=== PATIENT | male | born 1995 | race Caucasian/White ===

== ENCOUNTER 2022-11-26 22:14 | Emergency (ER) | payer BC ==
[~2022-11-26] VITALS: Wt 52.2 kg
[~2022-11-26 22:14] MED LIST: ATIVAN0.5 MG PO; ATIVAN1 MG PO; AUGMENTIN ES-6100 ML PO; CATAFLAM50 MG PO; CIPRO250 MG PO; CLARITIN5 MG/5 ML PO; FLEXERIL10 MG PO; FLONASE ALLERG9.9 ML NAS; HYDROCODONE BIT1 T11 PO; MOTRIN400 MG PO; MOTRIN800 MG PO; NKHM; PAXIL10 MG PO; ROBAXIN750 MG PO; ULTRAM50 MG PO
[2022-11-26 22:32] VITALS: BP 141/84
[2022-11-26] MEDS ORDERED: VIBRAMYCIN100 MG PO (23:36)
== END 2022-11-26 23:35 | disposition home or self-care (01) ==
LOC: ED 22:14
DX: S80.861A Insect bite (nonvenomous), right lower leg, initial encounter (principal); F41.9 Anxiety disorder, unspecified; Z90.89 Acquired absence of other organs; W57.XXXA Bitten or stung by nonvenomous insect and other nonvenomous arthropods, initial encounter; Y93.89 Activity, other specified; Y92.89 Other specified places as the place of occurrence of the external cause; Y99.8 Other external cause status

== ENCOUNTER 2025-06-20 22:21 | Emergency (ER) | payer OTHER ==
[~2025-06-20] VITALS: Ht 157.4 cm; Wt 54.4 kg
[~2025-06-20 22:21] MED LIST changes: +VIBRAMYCIN100 MG PO
[2025-06-20 22:30] VITALS: BP 149/103
[2025-06-20] MEDS ORDERED: Meloxicam 15 MG TAB PO ONE (23:25)
[2025-06-20] MEDS ORDERED: NAPROXEN 250 MG TAB PO ONE (23:30)
[2025-06-20] MEDS ORDERED: MELOXICAM15 MG PO (23:57)
== END 2025-06-21 00:01 | disposition home or self-care (01) ==
LOC: ED 22:21
DX: S76.111A Strain of right quadriceps muscle, fascia and tendon, initial encounter (principal); X58.XXXA Exposure to other specified factors, initial encounter; Y93.01 Activity, walking, marching and hiking; Y92.89 Other specified places as the place of occurrence of the external cause; Y99.8 Other external cause status